=== PATIENT | female | born 1980 | race Hispanic/Latino ===

== ENCOUNTER 2017-10-17 00:23 | Emergency (ER) | payer OTHER ==
[~2017-10-17 00:23] MED LIST: FLEXERIL10 MG PO; MOTRIN 600 MG600 MG PO; NAPROXEN500 MG PO
[2017-10-17 01:28] VITALS: BP 110/60
--- NOTE | 2017-10-17 02:15 | ED THROAT/DENTAL COMPLAINT ---
History of Present Illness General Chief Complaint: General Adult Stated Complaint: "SORE THROAT,BODY ACHE,CHILLS" Source: patient Exam Limitations: no limitations Vital Signs & Intake/Output Vital Signs & Intake/Output Vital Signs Date Time Temp Pulse Resp B/P B/P Pulse O2 O2 Flow FiO2 Mean Ox Delivery Rate 10/17 0151 100 Room Air 10/17 0128 98.1 71 18 110/60 98 Room Air Allergies Coded Allergies: No Known Allergies (10/17/17) Reconcile Medications No Known Home Medications Triage Note: TRIAGE: PATIENT TO ER FROM HOME REPORTS "ENTIRE FAMILY SICK, YESTERDAY AND TODAY LOST VOICE, PAIN W/ DRY COUGH CAUSING INTERMITTENT HEADACHES, 'LIKE PRESSURE.'" PATIENT DENIES SORE THROAT. Triage Nurses Notes Reviewed? yes Onset: Gradual Duration: hour(s):, constant, changing over time, continues in ED, getting worse : No Patient currently breastfeeds: No HPI: Patient presents for evaluation of a worsening voice hoarseness that began gradually yesterday. Patient denies sore throat pain, fever or cough but states she has had chills and body aches. She denies any known ill contacts or recent travel. She tried Mucinex without improvement. Past History Travel History Traveled to [place] past 21 day No Medical History Any Pertinent Medical History? see below for history Neurological: NONE EENT: NONE Cardiovascular: NONE Respiratory: NONE Gastrointestinal: NONE Hepatic: NONE Renal: NONE Musculoskeletal: NONE Psychiatric: NONE Endocrine: NONE Blood Disorders: NONE Cancer(s): NONE MANAGER OF COMPLIANCE/Reproductive: NONE Surgical History Surgical History: non-contributory Psychosocial History What is your primary language Mosotho Tobacco Use: Never used Family History Hx Contributory? No Review of Systems Review of Systems Constitutional: Reports: no symptoms. EENTM: Reports: see HPI. Respiratory: Reports: no symptoms. Cardiovascular: Reports: no symptoms. GI: Reports: no symptoms. Genitourinary: Reports: no symptoms. Musculoskeletal: Reports: no symptoms. Skin: Reports: no symptoms. Neurological/Psychological: Reports: no symptoms. Hematologic/Endocrine: Reports: no symptoms. Immunologic/Allergic: Reports: no symptoms. All Other Systems: Reviewed and Negative Physical Exam Physical Exam Mouth/Throat: SEE BELOW Comments: Gen.: Well-nourished, well-developed, no acute respiratory distress. Head: Normocephalic, atraumatic. Eyes: Normal inspection bilaterally Ears: Normal inspection bilaterally Nose: Normal inspection Throat/mouth : Moist mucosa, no oropharyngeal erythema soft tissue swelling or exudates, hoarse voice , manages secretions well Neck: Supple, full range of motion, no goiter, no stridor Lungs: Quiet respirations Back: Normal range of motion Extremities: Normal range of motion grossly, no cyanosis clubbing or edema of the upper extremities Neurologic: Cranial nerves grossly intact, speech is clear Skin: warm and dry Psychiatric: Calm, cooperative, no apparent delusions or hallucinations Lymphatic: No cervical lymphadenopathy Core Measures ACS in differential dx? No Sepsis Present: No Sepsis Focused Exam Completed? No Progress Differential Diagnosis: epiglottitis, Ludwigs angina, odontogenic abscess, scott- tonsillar abscess, strep pharyngitis Plan of Care: Symptomatic care Departure Departure Disposition: HOME OR SELF CARE Condition: Stable Clinical Impression Primary Impression: Laryngitis Referrals: Patient Has No Primary Care Dr (PCP/Family) Additional Instructions: Drink lots of fluids. [id number] ibuprofen if necessary for discomfort chills or fever. Follow-up with your primary care physician in one week if not improving. Return if any concerns or sudden worsening. Thank you for choosing the [facility] for your care. It was a pleasure to serve you today. Tee Somers M.D. [facility] Departure Forms: Customer Survey General Discharge Information Prescriptions: Current Visit Scripts No Known Home Medications
== END 2017-10-17 02:42 ==
LOC: ERH 00:23
DX: J04.0 Acute laryngitis (principal)